=== PATIENT | female | born 1990 | race Caucasian/White ===

== ENCOUNTER 2018-02-10 12:21 | Emergency (ER) | payer MEDICAID, SELFPAY, OTHER ==
[2018-02-10] MEDS: ONDANSETRON 4 MG ORAL DISINTEGRATING TAB (Q0162 PER 1MG) PO (14:23)
== END 2018-02-10 14:27 | disposition home or self-care (01) ==
LOC: M ED 12:21
DX: R03.0 Elevated blood-pressure reading, without diagnosis of hypertension (principal); R11.2 Nausea with vomiting, unspecified; J45.909 Unspecified asthma, uncomplicated; Z97.5 Presence of (intrauterine) contraceptive device; F19.90 Other psychoactive substance use, unspecified, uncomplicated
CPT/HCPCS: Q0162

== ENCOUNTER 2018-07-14 11:50 | Emergency (ER) | payer MEDICAID | END 2018-07-14 13:30 | disposition home or self-care (01) | LOC: M ED 11:50 | DX: S92.504A Nondisplaced unspecified fracture of right lesser toe(s), initial encounter for closed fracture (principal); W22.8XXA Striking against or struck by other objects, initial encounter; Y92.018 Other place in single-family (private) house as the place of occurrence of the external cause | CPT/HCPCS: 73660 ==

== ENCOUNTER 2018-10-23 12:34 | Emergency (ER) | payer MEDICAID, OTHER ==
[~2018-10-23] VITALS: Ht 170.2 cm; Wt 63.6 kg
[~2018-10-23 12:34] MED LIST: /ADVA50050; BIRTHCONTROL; HYDR25OI TOP; ONDA8TAB8 PO; PERC5TAB8; PROV90AE; [UNRECOGNIZED DRUG - REMARK] PO
[2018-10-23] MEDS ORDERED: NUVAMIS2 (12:37)
[2018-10-23] MEDS ORDERED: MIRE1IUD IU (12:37)
[2018-10-23 13:30] LABS: INFLUENZA A AMPLIFICATION POSITIVE (NEGATIVE); INFLUENZA B AMPLIFICATION NEGATIVE (NEGATIVE)
[2018-10-23] MEDS ORDERED: ALBUTEROL SULFATE 2.5 MG/0.5 ML INH NEB SOLN NEB ONE (13:45)
[2018-10-23] MEDS ORDERED: IPRATROPIUM 0.5MG/ALBUTEROL 2.5MG INH SOL UD 3ML (DUONEB)(J7620) As Ordered ONE (13:57)
--- NOTE | 2018-10-23 14:15 | REP ---
Chest x-ray: Two views. History: Flu. Rule out pneumonia. . Comparison study: No comparison chest x-ray . Findings: The lungs are well inflated and free of infiltrate. The pleural angles are sharp. The heart size is normal. Pulmonary vasculature is not increased. No significant bony abnormality is seen. There are surgical clips in the right upper quadrant of the abdomen. Impression: Negative chest x-ray. Electronically Signed by Omar Valdes MD 10/23/2018 02:06 P
[2018-10-23] MEDS ORDERED: ONDA4TAB6 PO (14:34)
[2018-10-23] MEDS ORDERED: PROAAER10 INH (14:34)
[2018-10-23 14:42] VITALS: BP 136/87
== END 2018-10-23 14:48 | disposition home or self-care (01) ==
LOC: M ED 12:34
DX: J09.X3 Influenza due to identified novel influenza A virus with gastrointestinal manifestations (principal); J45.909 Unspecified asthma, uncomplicated; Z97.5 Presence of (intrauterine) contraceptive device

== ENCOUNTER 2019-09-17 13:25 | Emergency (ER) | payer OTHER ==
[~2019-09-17] VITALS: Ht 167.6 cm; Wt 59.2 kg
[~2019-09-17 13:25] MED LIST changes: -/ADVA50050; +ADVA1AER2; +MIRE1IUD IU; +NUVAMIS2; +ONDA4TAB6 PO; +PROAAER10 INH
[2019-09-17 14:55] LABS: INFLUENZA A AMPLIFICATION NEGATIVE (NEGATIVE); INFLUENZA B AMPLIFICATION POSITIVE (NEGATIVE)
[2019-09-17 17:37] VITALS: BP 129/76
[2019-09-17] MEDS ORDERED: ONDANSETRON 4 MG ORAL DISINTEGRATING TAB (Q0162 PER 1MG) PO ONE (18:15)
[2019-09-17] MEDS ORDERED: ACETAMINOPHEN TAB 650MG DOSE (2X325MG) PO ONE (18:15)
[2019-09-17] MEDS ORDERED: OSELTAMIVIR PHOSPHATE 75 MG CAP (TAMIFLU) PO ONE (18:15)
[2019-09-17] MEDS ORDERED: OSEL75CA PO (19:29)
== END 2019-09-17 19:42 | disposition home or self-care (01) ==
LOC: M ED 13:25
DX: J10.89 Influenza due to other identified influenza virus with other manifestations (principal); J45.909 Unspecified asthma, uncomplicated; Z79.3 Long term (current) use of hormonal contraceptives
CPT/HCPCS: 87502; 99283; Q0162

== ENCOUNTER → 2020-02-05 | Outpatient (CLI) | payer OTHER ==
[~2020-02-05] MED LIST changes: +OSEL75CA PO
[2020-02-05 14:54] LABS: BASO % 0.6 % (0.0-1.0); EOS % 0.4 % (0.0-3.0); HEMATOCRIT 43.3 % (36.0-47.0); HEMOGLOBIN 14.4 g/dl (12.0-15.5); LYMPH % 28.8 % (24.0-44.0); MEAN CORPUSCULAR HEMOGLOBIN 30.6 pg (27.0-33.0); MEAN CORPUSCULAR HGB CONC 33.3 g/dl (32.0-36.5); MEAN CORPUSCULAR VOLUME 91.9 fl (80.0-96.0); MONO # 0.3 10^3/uL (0.0-0.8); MONO % 3.9 % (0.0-5.0); NEUTROPHILS # 4.5 10^3/uL (1.5-8.5); PLATELET COUNT, AUTOMATED 164 10^3/uL (150-450); RED BLOOD COUNT 4.71 10^6/uL (4.00-5.40); WHITE BLOOD COUNT 6.8 10^3/uL (4.0-10.0)
[2020-02-05 15:31] LABS: ALBUMIN 4.1 GM/DL (3.2-5.2); ALT/SGPT 23 U/L (12-78); BILIRUBIN,TOTAL 0.5 MG/DL (0.2-1.0); BLOOD UREA NITROGEN 12 MG/DL (7-18); CALCIUM LEVEL 9.1 MG/DL (8.5-10.1); CARBON DIOXIDE LEVEL 25 MEQ/L (21-32); CHLORIDE LEVEL 110 MEQ/L (98-107); CHOLESTEROL LEVEL 138 MG/DL (<200); CHOLESTEROL RISK RATIO 2.156 (<5); CREATININE FOR GFR 0.84 MG/DL (0.55-1.30); FREE T4 1.43 NG/DL (0.76-1.46); GLOMERULAR FILTRATION RATE > 60.0 (>60); GLUCOSE, FASTING 91 MG/DL (70-100); HDL CHOLESTEROL 64 MG/DL (>40); LDL CHOLESTEROL 62 MG/DL (<100); NON-HDL-C 74 MG/DL; POTASSIUM SERUM 4.2 MEQ/L (3.5-5.1); SODIUM LEVEL 142 MEQ/L (136-145); TOTAL PROTEIN 7.2 GM/DL (6.4-8.2); TRIGLYCERIDES LEVEL 59 MG/DL (<150)
== END ==
LOC: M LAB 14:22
PROVIDERS: ATTEND Physician Assistant Medical
DX: Z01.89 Encounter for other specified special examinations (principal); E78.00 Pure hypercholesterolemia, unspecified

== ENCOUNTER → 2020-02-08 | Outpatient (CLI) | payer OTHER ==
--- NOTE | 2020-02-08 16:14 | REP ---
Clinical: Trauma. Technique: AP, lateral, bilateral oblique views of the right and left hand . Findings: The osseous structures and joint spaces are intact and normal. There is no evidence for acute fracture or dislocation. Surrounding soft tissues are unremarkable. No subcutaneous emphysema or radiodense foreign body. Impression: No evidence for acute fracture or obvious trauma/injury to the right or left hand. Electronically Signed by Franklin Bull MD 02/08/2020 04:06 P
== END ==
LOC: M WUC 15:53
PROVIDERS: ATTEND Physician Assistant
DX: S60.221A Contusion of right hand, initial encounter (principal); X58.XXXA Exposure to other specified factors, initial encounter; Y92.89 Other specified places as the place of occurrence of the external cause

== ENCOUNTER → 2021-09-22 | Outpatient (CLI) | payer OTHER | LOC: M RAD 11:39 | PROVIDERS: ATTEND Physician Assistant | DX: M54.18 Radiculopathy, sacral and sacrococcygeal region (principal) ==

== ENCOUNTER 2021-10-13 11:24 | Emergency (ER) | payer OTHER ==
[~2021-10-13] VITALS: Ht 167.6 cm; Wt 61.8 kg
[2021-10-13] MEDS ORDERED: ONDANSETRON 4 MG ORAL DISINTEGRATING TAB PO ONE (13:25)
[2021-10-13] MEDS ORDERED: ACETAMINOPHEN 325 MG TAB PO ONE (13:25)
[2021-10-13 14:32] VITALS: BP 123/73
== END 2021-10-13 14:35 | disposition home or self-care (01) ==
LOC: M ED 11:24
DX: G44.209 Tension-type headache, unspecified, not intractable (principal); J45.909 Unspecified asthma, uncomplicated; Z79.3 Long term (current) use of hormonal contraceptives
CPT/HCPCS: 99283; Q0162

== ENCOUNTER → 2023-06-01 | Outpatient (CLI) | payer BC, OTHER ==
[~2023-06-01] MED LIST changes: +ETON1VAG7; -NUVAMIS2
== END ==
LOC: M WHC 12:51
PROVIDERS: ATTEND Obstetrics & Gynecology
DX: N88.8 Other specified noninflammatory disorders of cervix uteri (principal); N92.6 Irregular menstruation, unspecified

== ENCOUNTER → 2023-12-14 | Outpatient (REF) | payer BC ==
[2023-12-14 13:48] LABS: APPEARANCE, URINE CLEAR (CLEAR); BACTERIA, URINE AUTO 1+ (NEGATIVE); BILIRUBIN, URINE AUTO NEGATIVE (NEGATIVE); BLOOD, URINE BLOOD 1+ (NEGATIVE); COLOR, URINE AMBER (YELLOW); GLUCOSE, URINE (UA) AUTO NEGATIVE (NEGATIVE); KETONE, URINE AUTO NEGATIVE (NEGATIVE); LEUKOCYTE ESTERASE, URINE AUTO 3+ (NEGATIVE); NITRITE, URINE AUTO NEGATIVE (NEGATIVE); PROTEIN, URINE AUTO NEGATIVE (NEGATIVE); RBC, URINE AUTO 10 /HPF (0-3); SPECIFIC GRAVITY URINE AUTO 1.006 (1.002-1.035); SQUAMOUS EPITHELIAL CELL UR AU 1 /HPF (0-6); UROBILINOGEN, URINE AUTO 0.2 mg/dL (0.0-2.0); WBC, URINE AUTO 38 /HPF (0-3)
[2023-12-14 15:34] LABS: Trichomonas vaginalis (AMP) POSITIVE (NEGATIVE)
[2023-12-14 17:16] LABS: GC DNA AMPLIFICATION NEGATIVE (NEGATIVE)
== END ==
LOC: M LAB REF 12:41
PROVIDERS: ATTEND Physician Assistant
DX: N39.0 Urinary tract infection, site not specified (principal); Z20.2 Contact with and (suspected) exposure to infections with a predominantly sexual mode of transmission

== ENCOUNTER → 2024-03-25 | Outpatient (REF) | payer BC ==
[~2024-03-25] MED LIST changes: +ONDA-282 PO; +ONDA-284 PO; -ONDA4TAB6 PO; -ONDA8TAB8 PO
[2024-03-25 17:30] LABS: BASO % 0.5 % (0.0-1.0); EOS # 0.1 10^3/uL (0.0-0.5); EOS % 1.6 % (0.0-3.0); HEMATOCRIT 42.9 % (36.0-47.0); HEMOGLOBIN 14.1 g/dl (12.0-15.5); LYMPH # 2.4 10^3/uL (1.5-5.0); LYMPH % 29.6 % (24.0-44.0); MEAN CORPUSCULAR HEMOGLOBIN 30.9 pg (27.0-33.0); MEAN CORPUSCULAR HGB CONC 32.9 g/dl (32.0-36.5); MEAN CORPUSCULAR VOLUME 94.1 fl (80.0-96.0); MONO # 0.6 10^3/uL (0.0-0.8); MONO % 6.7 % (2.0-8.0); NEUTROPHILS # 5.1 10^3/uL (1.5-8.5); NEUTROPHILS % 61.4 % (36.0-66.0); PLATELET COUNT, AUTOMATED 222 10^3/uL (150-450); RED BLOOD COUNT 4.56 10^6/uL (4.00-5.40); WHITE BLOOD COUNT 8.3 10^3/uL (4.0-10.0)
[2024-03-25 17:42] LABS: BLOOD UREA NITROGEN 21 MG/DL (9-23); CALCIUM LEVEL 9.2 MG/DL (8.5-10.1); CARBON DIOXIDE LEVEL 28 MMOL/L (20-31); CHLORIDE LEVEL 108 MMOL/L (98-107); CREATININE FOR GFR 0.67 MG/DL (0.55-1.30); GLOMERULAR FILTRATION RATE > 60.0 (>60); GLUCOSE, FASTING 84 MG/DL (60-100); POTASSIUM SERUM 4.2 MMOL/L (3.5-5.1); SODIUM LEVEL 140 MMOL/L (136-145); THYROID STIMULATING HORMONE 2.127 uIU/ML (0.55-4.78); TOTAL 25(OH) VITAMIN D 36.6 NG/ML (20.0-100.0)
== END ==
LOC: M LAB REF 16:25
PROVIDERS: ATTEND Nurse Practitioner Family
DX: E55.9 Vitamin D deficiency, unspecified (principal); Z11.9 Encounter for screening for infectious and parasitic diseases, unspecified

== ENCOUNTER → 2024-04-28 | Outpatient (REF) | payer BC ==
[2024-04-28 12:35] LABS: CHOLESTEROL RISK RATIO 1.94 (<5); LDL CHOLESTEROL 58.8 MG/DL (<100)
== END ==
LOC: M LAB REF 11:23
PROVIDERS: ATTEND Nurse Practitioner Family
DX: Z13.6 Encounter for screening for cardiovascular disorders (principal)

== ENCOUNTER → 2024-12-09 | Outpatient (REF) | payer BC ==
[2024-12-09 13:37] LABS: APPEARANCE, URINE HAZY (CLEAR); BACTERIA, URINE AUTO NEGATIVE (NEGATIVE); BILIRUBIN, URINE AUTO NEGATIVE (NEGATIVE); BLOOD, URINE BLOOD NEGATIVE (NEGATIVE); COLOR, URINE AMBER (YELLOW); GLUCOSE, URINE (UA) AUTO NEGATIVE (NEGATIVE); KETONE, URINE AUTO TRACE mg/dL (NEGATIVE); LEUKOCYTE ESTERASE, URINE AUTO TRACE (NEGATIVE); MUCUS, URINE SMALL (NEGATIVE); NITRITE, URINE AUTO NEGATIVE (NEGATIVE); PROTEIN, URINE AUTO 1+ mg/dL (NEGATIVE); RBC, URINE AUTO 2 /HPF (0-3); SPECIFIC GRAVITY URINE AUTO 1.027 (1.002-1.035); SQUAMOUS EPITHELIAL CELL UR AU 9 /HPF (0-6); UROBILINOGEN, URINE AUTO 0.2 mg/dL (0.0-2.0); WBC, URINE AUTO 4 /HPF (0-3)
== END ==
LOC: M LAB REF 12:17
PROVIDERS: ATTEND Physician Assistant Medical
DX: N39.0 Urinary tract infection, site not specified (principal)